=== PATIENT | male | born 1960 | race Hispanic/Latino ===

== ENCOUNTER → 2019-09-08 | Day surgery (SDC) | payer MEDICARE ==
[2019-09-04 14:53] LABS: ANION GAP 11.9 mmol/L (8-16); BLOOD UREA NITROGEN 13 mg/dL (7-26); BUN/CREATININE RATIO 18 (6-25); CALCIUM 9.1 mg/dL (8.4-10.2); CARBON DIOXIDE 26 mmol/L (22-29); CHLORIDE 99 mmol/L (98-107); CREATININE, SERUM 0.72 mg/dL (0.72-1.25); EST GLOMERULAR FILTRATION RATE > 60 ML/MIN (60-); GLUCOSE 201 mg/dL (74-118); POTASSIUM 3.9 mmol/L (3.5-5.1); SODIUM 133 mmol/L (136-145)
[~2019-09-08] MED LIST: ACETAMINOPHEN 1000 MG/100 ML IV ONE; ACETAMINOPHEN/CODEINE 300MG - 30MG TAB ONE; ATORVASTATIN CA10 MG PO; BACITRACIN ZINC 15 GM OINT ONE; BUPIVACAINE 0.25% 30ML SDV INJ ONE; CEFAZOLIN SOD 1 GM/NS 50ML 50 ML IV ONE; DEXAMETHASONE SOD PHOS INJ 4 MG/ML VIAL ONE; FENTANYL CITRATE/PF 100MCG/2 ML INJ ONE; KETOROLAC TROMETHAMINE 30 MG/ML VIAL ONE; LEVEMIR100 UNIT/1 SQ; LIDOCAINE HCL 2% LOCAL INJ 5 ML SDV VIAL INJ ONE; LISINOPRIL10 MG PO; METFORMIN HCL500 MG PO; MIDAZOLAM HCL 2 MG/2 ML VIAL ONE; NOVOLOG100 UNITS1 SQ; ONDANSETRON HCL INJ 2MG/ML 2ML 2 MG/ML VIAL ONE; PROPOFOL IV EMULSION 10 MG/ML 20 ML VIAL ONE; SEVOFLURANE INHAL SOLN 250 ML PEN BTL ONE
--- OUTSIDE RECORDS SUMMARY | 2019-09-08 05:13 | XMS REPORT ---
Author [facility] [place] Unavailable Care Team Providers Care Grainer Machine Name Role Phone Unavailable Unavailable Payers Payer Name Policy Type Policy Number Effective Date Expiration Date Problems This patient has no known problems. Allergies, Adverse Reactions, Alerts Allergy Name Allergy Type Status Severity Reaction(s) Onset Date Inactive Date Treating Clinician Comments levofloxacin DA Active U 2012-10-01 00:00:00 pineapple DA Active U 2012-10-01 00:00:00 Medications This patient has no known medications.
[2019-09-08 08:20] VITALS: BP 118/78
--- NOTE | 2019-09-13 11:11 | Operative Report ---
DATE OF PROCEDURE: 09/08/2019 SURGEON: Ramón Frias MD PREOPERATIVE DIAGNOSIS: Phimosis POSTOPERATIVE DIAGNOSIS: Phimosis. PROCEDURE: Slit circumcision. ANESTHESIA: General. ESTIMATED BLOOD LOSS: Minimal. INDICATIONS: Mr. Sanders is a very pleasant 59-year-old male with inability to retract the foreskin for many years. He has had recurrent balanitis, had a long discussion in the office about alternatives, risks rest nothing with really obstruction with the balanitis care for formal circumcision, which was the options, alternatives, risks, and benefits and elected to proceed in a staged fashion. PROCEDURE IN DETAIL: After informed consent was obtained, the patient was taken to the operative suite, placed supine on the table under general anesthesia. There was a dorsal aspect of the penis marked approximately at the level of glans. This was then sharply incised. Meticulous hemostasis obtained in a bipolar fashion with electrocautery and pickups with excellent hemostasis noted. The wound was then closed with a running chromic gut stitch. After irrigation and prepping the inner prepuce, the foreskin was easily retracted to and fro. The wound was dressed. The patient was awakened from anesthesia and transported to recovery room in excellent condition. Ramón Frias MD ES/MODL /[id number] cc: John Hillman MD
== END | disposition home or self-care (01) ==
LOC: OR 05:11
PROVIDERS: ATTEND Urology
DX: N47.1 Phimosis (principal); E66.01 Morbid (severe) obesity due to excess calories; N52.9 Male erectile dysfunction, unspecified; N40.1 Benign prostatic hyperplasia with lower urinary tract symptoms; N50.0 Atrophy of testis; Z68.42 Body mass index [BMI] 45.0-49.9, adult; Z01.810 Encounter for preprocedural cardiovascular examination; Z01.812 Encounter for preprocedural laboratory examination; Z88.1 Allergy status to other antibiotic agents; Z91.018 Allergy to other foods; N48.1 Balanitis
CPT/HCPCS: 36415; 80048; 82948; 93005; J0690; J1100; J1885; J2001; J2250; J2405; J3010

== ENCOUNTER 2019-10-07 19:41 | Emergency (ER) | payer MEDICARE ==
[~2019-10-07] VITALS: Ht 177.8 cm; Wt 138.3 kg
[~2019-10-07 19:41] MED LIST changes: -ACETAMINOPHEN 1000 MG/100 ML IV ONE; -ACETAMINOPHEN/CODEINE 300MG - 30MG TAB ONE; -BACITRACIN ZINC 15 GM OINT ONE; -BUPIVACAINE 0.25% 30ML SDV INJ ONE; -CEFAZOLIN SOD 1 GM/NS 50ML 50 ML IV ONE; -DEXAMETHASONE SOD PHOS INJ 4 MG/ML VIAL ONE; -FENTANYL CITRATE/PF 100MCG/2 ML INJ ONE; -KETOROLAC TROMETHAMINE 30 MG/ML VIAL ONE; -LIDOCAINE HCL 2% LOCAL INJ 5 ML SDV VIAL INJ ONE; -MIDAZOLAM HCL 2 MG/2 ML VIAL ONE; -ONDANSETRON HCL INJ 2MG/ML 2ML 2 MG/ML VIAL ONE; -PROPOFOL IV EMULSION 10 MG/ML 20 ML VIAL ONE; -SEVOFLURANE INHAL SOLN 250 ML PEN BTL ONE
[2019-10-07] MEDS ORDERED: LIDOCAINE 1% W/EPINEPHRINE 20 ML VIAL ONE (20:23)
[2019-10-07] MEDS ORDERED: LIDOCAINE 2% /EPINEPHRINE 20 ML SDV INJ ONE (20:30)
--- NOTE | 2019-10-07 20:51 | Diagnostic Imaging Report ---
[facility] HISTORY: Trauma COMPARISON: None. Technique: Noncontrast axial scans were obtained from skull base to the vertex. Coronal and sagittal reconstructions obtained from the axial data. One or more of the following dose reduction techniques were used: Automated exposure control, adjustment of the mA and/or kV according to patient size, and/or utilization of iterative reconstruction technique. DISCUSSION: Scalp/Skull: Unremarkable. Brain sulci: Mildly prominent. Ventricles: Compensatory dilatation. Extra-axial spaces: No masses or fluid collections. Carotid siphon calcifications are present. Parenchyma: Mild bilateral deep white matter hypodensity is likely chronic microvascular ischemic change. Otherwise, no masses, hemorrhage, or large vascular territory acute infarct. Dural sinuses: No abnormal densities. Sellar/Suprasellar region: Intact. Skull base: Intact. Incidental findings: Trace right mastoid effusion is present. IMPRESSION: 1. No acute intracranial abnormalities. 2. Mild supratentorial chronic microvascular ischemic change. Mild generalized cerebral volume loss. Signed by: Dr. Rafael Foy M.D. on 10/07/2019 8:48 PM
--- NOTE | 2019-10-07 21:33 | Diagnostic Imaging Report ---
X-ray left shoulder 2 views HISTORY: Pain. COMPARISON: None available. FINDINGS: Bones: No acute displaced fracture. Osseous alignment is within normal limits. Joints: Mild degenerative changes in the acromioclavicular joint. Mild AC joint widening Soft tissues: The soft tissues appear unremarkable. IMPRESSION: Degenerative changes in the acromioclavicular joint. Mild AC joint widening, could represent a low-grade acromioclavicular separation. Signed by: Padilla Layton DO on 10/07/2019 9:30 PM
--- NOTE | 2019-10-07 21:36 | Diagnostic Imaging Report ---
CT C-SPINE W/O - HOPD HISTORY: Trauma COMPARISON: None. TECHNIQUE: CT of the cervical spine without contrast. Sagittal and coronal reformations were created. One or more of the following dose reduction techniques were used: Automated exposure control, adjustment of the mA and/or kV according to patient size, and/or utilization of iterative reconstruction technique. FINDINGS: Cervical lordosis is straightened. There is no scoliosis or subluxation. No fractures, compression deformity, or destructive osseous lesions are seen. The craniocervical junction is intact. No gross spinal canal masses are seen. The paravertebral and paraspinal soft tissues are unremarkable. Mild multilevel spondylotic changes are most prominent at C5-C6 and C6-C7. Mild atlantoaxial arthrosis is present as well. IMPRESSION: No acute osseous abnormalities. Signed by: Dr. Rafael Foy M.D. on 10/07/2019 9:31 PM
[2019-10-07 22:05] VITALS: BP 150/89
== END 2019-10-07 22:08 | disposition home or self-care (01) ==
LOC: FSED 19:41
DX: S01.01XA Laceration without foreign body of scalp, initial encounter (principal); S43.102A Unspecified dislocation of left acromioclavicular joint, initial encounter; S16.1XXA Strain of muscle, fascia and tendon at neck level, initial encounter; R51 Headache; W01.198A Fall on same level from slipping, tripping and stumbling with subsequent striking against other object, initial encounter; Y92.89 Other specified places as the place of occurrence of the external cause; I10 Essential (primary) hypertension; E11.9 Type 2 diabetes mellitus without complications
CPT/HCPCS: 70450; 72125; 99283; J2001